=== PATIENT | male | born 1990 | race American Indian/Alaskan Native ===

== ENCOUNTER 2021-04-17 16:41 | Emergency (ER) | payer SELFPAY ==
[2021-04-17 16:50] VITALS: BP 133/74
--- NOTE | 2021-04-17 17:18 | Event Note ---
ED Screening Note Date of service: 04/17/21 Time: 17:17 ED Screening Note: 30-year-old male patient with history of marijuana use presents to the emergency department with complaints of nonproductive cough for approximately 10 days. No known sick contacts. No current steroid or antibiotic use. No recent travel. Patient has used cbmf-iyt-ggbdmbr cough/cold remedies and elderberry syrup with limited relief. Patient did not receive his COVID-19 vaccination series. General: Awake, appropriately interactive, no acute distress. Neck: Supple. Full range of motion intact. Cardiovascular: Regular rate and rhythm. Normal peripheral perfusion. Pulmonary: Mild scattered expiratory wheezing. No respiratory distress. Patient is speaking normally without use of accessory muscles. Skin: No apparent rashes or lesions. Neurological: No facial asymmetry. Speech is clear. Follows commands. Patient is alert and oriented. Musculoskeletal: Moves all four extremities spontaneously with normal range of motion. Psych: Cooperative. Appropriate mood and affect. I have greeted and performed a focused rapid initial assessment of this patient. A comprehensive ED assessment and evaluation of the patient, analysis of all test results, and completion of the medical decision-making process will be conducted by additional ED providers. This initial assessment/diagnostic orders/clinical plan/treatment(s) is/are subject to change based on patients health status, clinical progression and re-assessment. Further treatment and workup at subsequent clinical provider's discretion. Patient/guardian urged not to elope from the ED as their condition may be serious if not clinically assessed and managed.
--- NOTE | 2021-04-17 17:49 | XRay Report ---
CHEST 2 VIEWS INDICATION / CLINICAL INFORMATION: Cough, (+) wheezing, no hx asthma, and (+)marijuana. COMPARISON: None available. FINDINGS: SUPPORT DEVICES: None. HEART / MEDIASTINUM: The heart size and pulmonary vasculature are normal. LUNGS / PLEURA: There is mild patchy parenchymal disease in the left lower lung medially on the PA vi ew, located overlying the spine on the lateral view. The lungs are otherwise clear. No pleural effusi on. No pneumothorax. ADDITIONAL FINDINGS: No significant additional findings. IMPRESSION: Left lower lobe pneumonia is likely bacterial. Signer Name: Terrell Wick MD Signed: 04/17/2021 5:44 PM Workstation Name: [id number]
--- NOTE | 2021-04-17 19:06 | Emergency Department Report ---
ED General Adult HPI - General Chief complaint: Upper Respiratory Infection Stated complaint: CHRONIC COUGH AND DISCHARGE Time Seen by Provider: 04/17/21 17:17 Source: patient Mode of arrival: Ambulatory Limitations: No Limitations - History of Present Illness Initial comments: 30-year-old male patient with history of marijuana use presents to the emergency department with complaints of nonproductive cough for approximately 10 days. No known sick contacts. No current steroid or antibiotic use. No recent travel. Patient has used lcqe-ulw-nrqntxa cough/cold remedies and elderberry syrup with limited relief. Patient did not receive his COVID-19 vaccination series. Denies fever, chills, hemoptysis, shortness of breath, chest pain, vomiting. D enies all other complaints at this time. - Related Data Previous Rx's Medication Instructions Recorded Last Taken Type Albuterol Sulfate [Proair 90 mcg IH Q6H #1 aer.pw.bas 04/17/21 Unknown Rx Digihaler] Amoxicillin [Trimox CAP] 1,000 mg PO TID 7 Days capsule 04/17/21 Unknown Rx Allergies Allergy/AdvReac Type Severity Reaction Status Date / Time milk AdvReac Diarrhea Verified 04/17/21 16:48 ED Review of Systems ROS: Stated complaint: CHRONIC COUGH AND DISCHARGE Other details as noted in HPI Other: GENERAL: Negative for fever, chills, weight change, anorexia, fatigue. ENT: Negative for ear pain, difficulty hearing, sore throat, nasal congestion, epistaxis. CARDIOVASCULAR: Negative for chest pain, palpitations, lower extremity swelling. PULMONARY: Positive for cough. GASTROINTESTINAL: Negative for abdominal pain, nausea, vomiting, diarrhea, constipation. MUSCULOSKELETAL: Negative for joint pain, joint swelling, myalgias, back pain, neck pain. NEUROLOGICAL: Negative for headache, seizure, syncope, paresthesias, weakness. INTEGUMENTARY: Negative for erythema, rash, diaphoresis, laceration, ecchymosis. HEMATOLOGICAL: Negative for hemoptysis, hematemesis, hematochezia, hematuria. PSYCHIATRIC: Negative for hallucinations, suicidal ideation, homicidal ideation, anxiety, depression. ED Past Medical Hx - Past Medical History Previous Medical History?: No - Surgical History Past Surgical History?: No - Medications Home Medications: Home Medications Medication Instructions Recorded Confirmed Last Taken Type Albuterol Sulfate [Proair 90 mcg IH Q6H #1 aer.pw.bas 04/17/21 Unknown Rx Digihaler] Amoxicillin [Trimox CAP] 1,000 mg PO TID 7 Days capsule 04/17/21 Unknown Rx ED Physical Exam - General Limitations: No Limitations - Other Other exam information: General: Awake and alert. No acute distress. Head: Atraumatic, normocephalic. Eyes: EOMI. Pupils are equal and round. Normal sclera and conjunctiva. ENT: Oral mucosa is moist. Normal pharyngeal exam. Neck: Supple. No lymphadenopathy. Pulmonary: No respiratory distress. Mild expiratory wheezing along left lower lobe. Cardiac: Regular rate and rhythm. Pulses are palpable and equal bilaterally. No lower extremity cyanosis or edema. Skin: Warm and dry. No rashes. Abdomen: Soft, non-tender, non-protuberant. No guarding, rigidity, or rebound. Bowel sounds are normal. No organomegaly or masses noted. Back: Normal alignment. No CVA tenderness. Extremities: Symmetrical. Full range of motion intact. Neurological: Alert and oriented, appropriately interactive, no focal deficits. Psych: Cooperative. Appropriate mood and affect. Speech is evenly metered. Thoughts are logically construed. ED Course Vital Signs 04/17/21 16:49 Temperature 98.8 F Pulse Rate 72 Respiratory 16 Rate Blood Pressure 133/74 O2 Sat by Pulse 98 Oximetry ED Medical Decision Making - Radiology Data [facility] [address] [place] [address] XRay Report Signed Patient: JORGE SYKES MR#: [id number] : 1990 Acct:[id number] Age/Sex: 30 / M ADM Date: 04/17/21 Loc: ED Attending Dr: Ordering Physician: BRITTNI CAGLE Date of Service: 04/17/21 Procedure(s): XR chest routine 2V Accession Number(s): [id number] cc: BRITTNI CAGLE Fluoro Time In Minutes: CHEST 2 VIEWS INDICATION / CLINICAL INFORMATION: Cough, (+) wheezing, no hx asthma, and (+)marijuana. COMPARISON: None available. FINDINGS: SUPPORT DEVICES: None. HEART / MEDIASTINUM: The heart size and pulmonary vasculature are normal. LUNGS / PLEURA: There is mild patchy parenchymal disease in the left lower lung medially on the PA view, located overlying the spine on the lateral view. The lungs are otherwise clear. No pleural effusion. No pneumothorax. ADDITIONAL FINDINGS: No significant additional findings. IMPRESSION: Left lower lobe pneumonia is likely bacterial. Signer Name: Terrell Wick MD Signed: 04/17/2021 5:44 PM Workstation Name: [id number] Transcribed By: RT Dictated By: Terrell Wick MD Electronically Authenticated By: Terrell Wick MD Signed Date/Time: 04/17/211743 DD/ 42 TD/TT: - Medical Decision Making Differential diagnosis including but not limited to: pneumonia, pertussis, pneumothorax, pleural effusion, viral upper respiratory infection On reevaluation, patient remains stable. He is afebrile. No hypoxia, no respiratory distress. Tolerating oral intake without difficulty. Ambulatory without assistance. Chest x-ray shows mild patchy parenchymal disease in the left lower lung medial in the PA view, suggestive of bacterial pneumonia. Patient has no history of pre-existing cardiopulmonary disease. Patient is an appropriate candidate for outpatient management. COVID-19 testing is currently unavailable at this facility. He will be discharged home with Amoxicillin per 2019 IDSA/ATS community acquired pneumonia guidelines, as well as Albuterol inhaler for mild wheezing, and referred to primary care provider for close outpatient follow-up. Patient expressed understanding and is agreeable to plan of care. Emphasized the importance of discontinuing marijuana use. Disease transmission precautions discussed. Strict return precautions provided. Repeat exam is unremarkable and benign. History, exam, diagnostic testing, and current condition do not suggest worrisome pathology to warrant further testing, continued ED treatment, admission, or surgical evaluation at this point. Given the low probability of a significant medical illness, it would be more likely to result in harm than benefit to perform further testing at this stage. Discussed findings, presumptive diagnosis, need for follow-up and specific signs/symptoms that should prompt immediate return to the emergency department. Instructions were explained in detail to the patient in addition to giving written discharge information. Patient expressed understanding and was given the opportunity to ask questions, all of which were satisfactorily answered prior to discharge home. Critical care attestation.: If time is entered above; I have spent that time in minutes in the direct care of this critically ill patient, excluding procedure time. ED Disposition Clinical Impression: Left lower lobe pneumonia Qualifiers: Pneumonia type: due to unspecified organism Qualified Code(s): J18.9 - Pneumonia, unspecified organism Disposition: DC-01 TO HOME OR SELFCARE Is pt being admited?: No Does the pt Need Aspirin: No Condition: Stable Instructions: Community-Acquired Pneumonia, Adult, Cosm-ce-Wkwh, Bacterial Pneumonia (ED) Additional Instructions: Take Amoxicillin with food as directed. Increase your dietary intake of probiotic rich foods while taking this medication. Use Albuterol inhaler as directed. Please discontinue marijuana use. Rest. Drink plenty of fluids. Wash hands frequently to prevent disease transmission. Do not share food or drinks with others. Follow-up with primary care provider this week. Call tomorrow to schedule an appointment. See referral information below. Return to the emergency department immediately for new or worsening symptoms. Specifically, return to the emergency department immediately for fever, shortness of breath, chest pain, dehydration, mental status changes, rash, or any other concerns. Prescriptions: Albuterol Sulfate [Proair Digihaler] 90 mcg IH Q6H #1 aer.pw.bas Amoxicillin [Trimox CAP] 1,000 mg PO TID 7 Days capsule Referrals: VINNY GREEN MD [Staff Physician] - 3-5 Days [facility] [Outside] - 3-5 Days [facility] [Outside] - 3-5 Days [facility] [Outside] - 3-5 Days [facility] [Provider Group] - 3-5 Days Forms: Work/School Release Form(ED) Time of Disposition: 19:08
== END 2021-04-17 20:30 | disposition home or self-care (01) ==
LOC: ED 16:41
DX: J18.1 Lobar pneumonia, unspecified organism (principal); Z79.899 Other long term (current) drug therapy; Z91.011 Allergy to milk products
CPT/HCPCS: 71046